=== PATIENT | male | born 1975 | race African-American/Black ===

== ENCOUNTER 2018-08-15 17:40 | Emergency (ER) | payer MEDICAID ==
[~2018-08-15] VITALS: Ht 182.9 cm; Wt 93.5 kg
[~2018-08-15 17:40] MED LIST: FOLI0.4T2 PO; SULF500T36 PO
[2018-08-15 17:43] VITALS: BP 145/94
== END 2018-08-15 18:20 | disposition home or self-care (01) ==
LOC: ED 18:00
DX: J01.00 Acute maxillary sinusitis, unspecified (principal); J01.10 Acute frontal sinusitis, unspecified
CPT/HCPCS: 99283

== ENCOUNTER 2018-09-28 11:56 | Emergency (ER) | payer MEDICAID ==
[~2018-09-28] VITALS: Ht 182.9 cm; Wt 93.1 kg
[2018-09-28] MEDS ORDERED: KETOROLAC 30 MG/1 ML ONE (13:19)
[2018-09-28] MEDS ORDERED: KETOROLAC 30 MG/1 ML IM ONE (13:30)
[2018-09-28 14:07] VITALS: BP 132/87
== END 2018-09-28 14:10 | disposition home or self-care (01) ==
LOC: ED 14:03
DX: M54.32 Sciatica, left side (principal); J06.9 Acute upper respiratory infection, unspecified; F17.200 Nicotine dependence, unspecified, uncomplicated
CPT/HCPCS: 71046; 96372; 99284; J1885

== ENCOUNTER 2018-11-23 13:19 | Emergency (ER) | payer MEDICAID ==
[~2018-11-23] VITALS: Ht 182.9 cm; Wt 97.8 kg
[2018-11-23 13:51] VITALS: BP 139/102
[2018-11-23] MEDS ORDERED: OXYM30SP INH (14:12)
[2018-11-23] MEDS ORDERED: MESA1.2T PO (14:12)
--- NOTE | 2018-11-23 14:51 | NUR ---
PT APPEARS AGITATED, SPEAKING TO MD IN RAISED VOICE WITH ARMS CROSSED. REPORTS, "I'M NOT TAKING NO ANTIBIOTICS UNLESS YOU TEST ME."
--- NOTE | 2018-11-23 14:59 | NUR ---
PT HAS A LIST OF DIAGNOSES ON HIS PHONE: CYSTIC FIBROSIS, PNA, PULMONARY EMBOLUS...THAT IS REQUESTING A W/U FOR. ALERTED AND AWARE. NO NEW ORDERS RCV'D.
[2018-11-23] MEDS ORDERED: ACETAMINOPHEN 500 MG TABLET ONE (15:26)
--- NOTE | 2018-11-23 16:25 | NUR ---
PT EXPRESSING DISATISFACTION AT TIME OF D/C..."HE JUST CAME UP WITH THAT OUT OF HIS MIND. HE DIDN'T DO NOT TESTS. THAT AIN'T RIGHT."
== END 2018-11-23 16:27 | disposition home or self-care (01) ==
LOC: ED 16:01
DX: J32.0 Chronic maxillary sinusitis (principal); J32.1 Chronic frontal sinusitis; J32.2 Chronic ethmoidal sinusitis; J33.8 Other polyp of sinus; Z87.19 Personal history of other diseases of the digestive system
CPT/HCPCS: 70486; 71045; 99284

== ENCOUNTER 2019-07-02 13:58 | Emergency (ER) | payer MEDICAID, OTHER ==
[~2019-07-02] VITALS: Ht 182.9 cm; Wt 85.0 kg
[2019-07-02 15:38] VITALS: BP 131/96
== END 2019-07-02 15:49 | disposition home or self-care (01) ==
LOC: ED 14:52
DX: I10 Essential (primary) hypertension (principal)
CPT/HCPCS: 36415; 80048; 82040; 84484; 85025; 93005; 99284

== ENCOUNTER 2019-12-10 18:22 | Emergency (ER) | payer MEDICAID ==
[~2019-12-10] VITALS: Ht 180.3 cm; Wt 85.5 kg
[~2019-12-10 18:22] MED LIST changes: +AMLO5TAB10 PO; +MESA1.2T PO; +METOPROLOL; +OXYM30SP INH
[2019-12-10 18:59] VITALS: BP 139/91
[2019-12-10] MEDS ORDERED: SODIUM CHLORIDE 0.9% 1,000ML IVBOLUS ONE (19:00)
[2019-12-10] MEDS ORDERED: SODIUM CHLORIDE FLUSH 10ML SYR IVF ONE (19:00)
[2019-12-10] MEDS ORDERED: PROCHLORPERAZINE 5 MG/ML, 2ML IVPush ONE (19:00)
[2019-12-10] MEDS ORDERED: DIPHENHYDRAMINE 50 MG/ML, 1ML IVPush ONE (19:00)
--- NOTE | 2019-12-10 19:00 | NUR ---
PT HERE WITH C/O HEADACHE FOR 2 DAYS, PT STATES IT IS ISOLATED TO LEFT SIDE OF HEAD, "PINS AND NEEDLES AND PULSING, IT'S MAKING MY SCALP SENSITIVE." PT AAO X 4, NAD, ROOM AIR, DRESSED IN GOWN AND ON MONITOR. CALL LIGHT WITHIN REACH. PT STATES HX HTN AND TAKES MEDS, PT ALSO STATES TRIED TYLENOL AND IBUPROFEN AT HOME WITH NO RELIEF. MD AT BEDSIDE FOR EXAM. PIV ESTABLISHED AND LABS DRAWN BY THIS RN.
[2019-12-10] MEDS ORDERED: PROCHLORPERAZINE 5 MG/ML, 2ML ONE (19:12)
[2019-12-10] MEDS ORDERED: DIPHENHYDRAMINE 50 MG/ML, 1ML ONE (19:12)
--- NOTE | 2019-12-10 19:15 | NUR ---
PT MEDICATED PER ORDERS.
[2019-12-10 19:25] LABS: MEAN CORPUSCULAR HEMOGLOBIN 28.5 pg (27.5-34.5); MEAN CORPUSCULAR HGB CONC 32.7 g/dL (33.2-36.2); MEAN CORPUSCULAR VOLUME 87.2 fL (81-97); MEAN PLATELET VOLUME 9.1 fL (7.4-10.4); PLATELET COUNT 217 x10^3/uL (130-400); RED BLOOD COUNT 4.75 x10^6/uL (4.38-5.82)
[2019-12-10 19:31] LABS: ALANINE AMINOTRANSFERASE 24 U/L (12-78); ALBUMIN 3.6 g/dL (3.4-5.0); ANION GAP 7 mmol/L (5-15); CALCIUM 8.7 mg/dL (8.5-10.1); CHLORIDE 110 mmol/L (98-107); CREATININE 1.16 mg/dL (0.7-1.3)
[2019-12-10 19:33] LABS: ALKALINE PHOSPHATASE 95 U/L (45-117); BILIRUBIN,TOTAL 0.3 mg/dL (0.2-1.0); TOTAL PROTEIN 6.9 g/dL (6.4-8.2)
--- NOTE | 2019-12-10 19:41 | NUR ---
PT TO CT.
[2019-12-10 19:51] LABS: BASOPHILS # (AUTO) 0.02 x10^3/uL (0-0.1); BASOPHILS % (AUTO) 1 % (0-1); EOSINOPHILS % (AUTO) 2 % (1-7); LYMPHOCYTES # (AUTO) 1.73 x10^3/uL (1-3.4); LYMPHOCYTES % (AUTO) 37 % (22-44); MD SCAN; MONOCYTES # (AUTO) 0.41 x10^3/uL (0.2-0.8); MONOCYTES % (AUTO) 9 % (2-9); NEUTROPHILS # (AUTO) 2.43 x10^3/uL (1.8-6.8); NEUTROPHILS % (AUTO) 52 % (42-75)
--- NOTE | 2019-12-10 19:59 | NUR ---
PT BACK FROM CT.
[2019-12-10] MEDS ORDERED: OMNIPAQUE 350 MG/ML, 100ML BOTTLE ONE (20:21)
--- NOTE | 2019-12-10 20:56 | NUR ---
Patient/Caregiver given discharge instructions and they have confirmed that they understand the instructions. Patient ambulatory with steady gait.
== END 2019-12-10 21:06 | disposition home or self-care (01) ==
LOC: ED 19:38
DX: G44.219 Episodic tension-type headache, not intractable (principal); J32.0 Chronic maxillary sinusitis; I10 Essential (primary) hypertension
CPT/HCPCS: 36415; 70450; 70496; 80053; 85025; 93005; 96374; 96375; 99284; J0780; J1200; J7030; Q9967

== ENCOUNTER 2020-09-19 17:43 | Emergency (ER) | payer OTHER, MEDICAID ==
[~2020-09-19] VITALS: Ht 182.9 cm; Wt 82.6 kg
[~2020-09-19 17:43] MED LIST changes: +AMLO-210 PO; -AMLO5TAB10 PO; -OXYM30SP INH; +OXYM30SP27 INH
--- NOTE | 2020-09-19 19:45 | NUR ---
ASSUMED CARE OF PT AT THIS TIME. PT AO X 4. SKIN WARM AND DRY. RESP EVEN AND UNLABORED. NO ACUTE DISTRESS NOTED AT THIS TIME. PT C/O JUST BELOW NECK PAIN X 4 DAYS. PT STATES "I CAN MOVE MY NECK JUST FINE. IT'S JUST WHEN I LOOK UP". PT REFUSED OFFER OF NECK COLLAR AT THIS TIME. PT AWARE WE ARE WAITING FOR IMAGING RESULTS.
--- NOTE | 2020-09-19 20:38 | NUR ---
PT STEADY UPON AMBULATION. PT AO X 4. SKIN WARM AND DRY. REPS EVEN AND UNLABORED. PT MOVING ALL EXTREMITIES W/O DIFFICULTY. SPEECH CLEAR. PT VERBALIZED UNDERSTANDING OF DC INSTRUCTIONS AND RX AND NEED FOR F/U.
[2020-09-19 20:41] VITALS: BP 135/81
== END 2020-09-19 20:43 | disposition home or self-care (01) ==
LOC: ED 20:39
DX: S16.1XXA Strain of muscle, fascia and tendon at neck level, initial encounter (principal); G89.11 Acute pain due to trauma; M54.2 Cervicalgia; I10 Essential (primary) hypertension; W20.8XXA Other cause of strike by thrown, projected or falling object, initial encounter; Y93.89 Activity, other specified; Y92.89 Other specified places as the place of occurrence of the external cause; Y99.8 Other external cause status
CPT/HCPCS: 72050; 99284

== ENCOUNTER 2021-01-19 13:44 | Emergency (ER) | payer OTHER ==
[~2021-01-19] VITALS: Ht 182.9 cm; Wt 88.0 kg
[~2021-01-19 13:44] MED LIST changes: -FOLI0.4T2 PO; +FOLI0.4T5 PO
--- NOTE | 2021-01-19 13:58 | NUR ---
PATIENT AMBULATORY TO ROOM FROM TRIAGE.
[2021-01-19] MEDS ORDERED: KETOROLAC 30 MG/1 ML ONE (14:22)
[2021-01-19] MEDS ORDERED: DIPHENHYDRAMINE 50 MG/ML, 1ML ONE (14:22)
[2021-01-19] MEDS ORDERED: METOCLOPRAMIDE 5 MG/ML, 2ML ONE (14:22)
[2021-01-19] MEDS ORDERED: METOCLOPRAMIDE 5 MG/ML, 2ML IVPush ONE ×2 (14:30→15:30)
[2021-01-19] MEDS ORDERED: METHOCARBAMOL 1,000 MG in DEXTROSE 5% 100 ML IV ONE (14:30)
[2021-01-19] MEDS ORDERED: SODIUM CHLORIDE 0.9% 1,000ML IV ONE (14:30)
[2021-01-19] MEDS ORDERED: DIPHENHYDRAMINE 50 MG/ML, 1ML IVPush ONE (14:30)
[2021-01-19] MEDS ORDERED: KETOROLAC 30 MG/1 ML IVPush ONE (14:30)
--- NOTE | 2021-01-19 14:40 | NUR ---
Pt c/o intermittent migraine ALATORRE and neck pain since injury in August 2020. Pt reports he has been taking muscle relaxers and tylenol at home without relief. Pt reports ALATORRE currently 05/31, denies nausea or sensitivity to light. Pt placed in gown, positioned for comfort in bed with warm blanket. Continuous oxygen and BP monitors applied, all safety measures observed. PIV inserted and pt medicated per JAN. POC discussed. Pt denies other needs.
--- NOTE | 2021-01-19 15:01 | NUR ---
Medications given per MAR. Pt up to the restroom. No other requests at this time.
[2021-01-19 15:56] VITALS: BP 129/85
== END 2021-01-19 15:59 | disposition home or self-care (01) ==
LOC: ED 14:00
DX: S16.1XXA Strain of muscle, fascia and tendon at neck level, initial encounter (principal); G44.229 Chronic tension-type headache, not intractable; I10 Essential (primary) hypertension; X58.XXXA Exposure to other specified factors, initial encounter; Y93.89 Activity, other specified; Y92.89 Other specified places as the place of occurrence of the external cause; Y99.8 Other external cause status
CPT/HCPCS: 96365; 96375; 99284; J1200; J1885; J2765; J2800; J7030; 96374